=== PATIENT | female | born 1965 | race Caucasian/White ===

== ENCOUNTER 2023-12-17 12:11 | Emergency (ER) | payer BC, OTHER ==
[~2023-12-17] VITALS: Ht 170.2 cm; Wt 104.3 kg
[2023-12-17 12:46] VITALS: BP_SYST 126; PULSE 87; RESP 18; TEMP 97.4; O2SAT 95
[2023-12-17 13:28] LABS: BASOPHILS # (AUTO) 0.1 K/uL (0.0-0.2); EOSINOPHILS % (AUTO) 0.4 % (0.0-4.0); HEMATOCRIT 34.5 % (36-48); HEMOGLOBIN 11.9 g/dL (12.0-16.0); LYMPHOCYTES # (AUTO) 1.1 K/uL (1.0-5.5); LYMPHOCYTES % (AUTO) 19.5 % (20.5-51.5); MEAN CORPUSCULAR HEMOGLOBIN 33 pg (27-31); MEAN CORPUSCULAR HGB CONC 35 % (32-36); MEAN CORPUSCULAR VOLUME 96 fL (79.0-98.0); MONOCYTES # (AUTO) 0.6 K/uL (0.0-1.0); MONOCYTES % (AUTO) 9.9 % (1.7-9.3); NEUTROPHILS # (AUTO) 3.9 K/uL (1.8-7.7); NEUTROPHILS % (AUTO) 69.2 % (40.0-70.0); PLATELET COUNT (AUTO) 118 K/uL (130-430); RED BLOOD CELL COUNT(AUTO) 3.61 MIL/uL (4.2-6.2); RED CELL DISTRIBUTION WIDTH 14.9 % (9.0-15.0); WHITE BLOOD COUNT (AUTO) 5.6 K/uL (4.8-10.8)
[2023-12-17 13:46] LABS: INR 1.3 (0.8-1.2); PROTHROMBIN TIME 13.3 SECS (9.5-12.5)
[2023-12-17 13:47] LABS: ANION GAP 13 (5-15); CALCIUM 8.6 mg/dL (8.4-11.0); CARBON DIOXIDE 24 mmol/L (23-29); CHLORIDE 100 mmol/L (98-107); CREATININE 0.68 mg/dL (0.55-1.30); GFR AFRICAN AMERICAN 114 mL/min (>90); GLUCOSE 105 mg/dL (74-106); POTASSIUM 4.4 mmol/L (3.5-5.1); SODIUM SERUM 137 mmol/L (136-145); UREA NITROGEN, BLOOD 7 mg/dL (8-21)
[2023-12-17 13:51] LABS: GFR NON AFRICAN-AMERICAN 94 mL/min (>90)
[2023-12-17 15:04] LABS: FREE T4 (FREE THYROXINE) 0.9 ng/dL (0.6-1.6); THYROID STIMULATING HORMONE 5.03 uIu/mL (0.34-4.82)
[2023-12-17 16:58] VITALS: BP_SYST 126; PULSE 87; RESP 18; TEMP 97.4; O2SAT 95
== END 2023-12-17 15:30 | disposition home or self-care (01) ==
LOC: SED 12:11
DX: K92.2 Gastrointestinal hemorrhage, unspecified (principal); E03.9 Hypothyroidism, unspecified; R53.1 Weakness; I10 Essential (primary) hypertension
CPT/HCPCS: 36415; 71045; 80048; 84439; 84443; 84484; 85025; 85610; 85730; 93005; 99285

== ENCOUNTER 2024-03-02 09:29 | Inpatient (IN) | payer OTHER ==
[~2024-03-02] VITALS: Ht 167.6 cm; Wt 108.9 kg
[2024-03-02] VITALS (7 sets, daily range): BP systolic 92–155; PULSE 118–128; RESP 14–19; TEMP 97.3–98.6; O2SAT 95–98
[2024-03-02 10:37] LABS: COVID19 ANTIGEN SOFIA FIA NEGATIVE (NEGATIVE)
[2024-03-02 10:38] LABS: INFLUENZA TYPE A Negative (NEGATIVE); INFLUENZA TYPE B NEGATIVE (NEGATIVE)
[2024-03-02 11:14] LABS: BILIRUBIN,URINE 2+ (NEGATIVE); BLOOD, URINE NEGATIVE (NEGATIVE); CLARITY/URINE SL CLOUDY (CLEAR); COLOR,URINE YELLOW (YELLOW); GLUCOSE,URINE NEGATIVE (NEGATIVE); KETONES,URINE TRACE (NEGATIVE); LEUKOCYTE ESTERASE ,URINE NEGATIVE (NEGATIVE); NITRITE, URINE NEGATIVE (NEGATIVE); PROTEIN URINE 1+ (NEGATIVE); UROBILINOGEN,URINE 0.2 (0.2-1.0)
[2024-03-02] MEDS: LORazepam 2 MG/ML VIAL IVP ONE (11:26)
[2024-03-02 11:34] LABS: BACTERIA,URINE MANY /HPF (None Seen); FINE GRANULAR CASTS,URINE 0-5 /LPF (None Seen); HYALINE CASTS, URINE 0-3 /LPF (None Seen)
[2024-03-02 11:54] LABS: BASOPHILS % (AUTO) 0.2 % (0.0-2.0); EOSINOPHILS % (AUTO) 0.1 % (0.0-4.0); HEMATOCRIT 40.9 % (36-48); HEMOGLOBIN 13.4 g/dL (12.0-16.0); LYMPHOCYTES # (AUTO) 0.8 K/uL (1.0-5.5); MEAN CORPUSCULAR HEMOGLOBIN 31 pg (27-31); MEAN CORPUSCULAR HGB CONC 33 % (32-36); MEAN CORPUSCULAR VOLUME 96 fL (79.0-98.0); MONOCYTES # (AUTO) 0.9 K/uL (0.0-1.0); MONOCYTES % (AUTO) 4.5 % (1.7-9.3); NEUTROPHILS # (AUTO) 18.3 K/uL (1.8-7.7); NEUTROPHILS % (AUTO) 91.2 % (40.0-70.0); PLATELET COUNT (AUTO) 136 K/uL (130-430); RED BLOOD CELL COUNT(AUTO) 4.26 MIL/uL (4.2-6.2); RED CELL DISTRIBUTION WIDTH 14.5 % (9.0-15.0); WHITE BLOOD COUNT (AUTO) 20.1 K/uL (4.8-10.8)
[2024-03-02 12:07] LABS: ALANINE AMINOTRANSFERASE 82 U/L (12-78); ALBUMIN 1.3 g/dL (3.4-4.8); ANION GAP 8 (5-15); ASPARTATE AMINOTRANSFERASE 147 U/L (10-37); BILIRUBIN,DIRECT 3.8 mg/dL (0.0-0.3); CALCIUM 7.5 mg/dL (8.4-11.0); CARBON DIOXIDE 29 mmol/L (23-29); CREATININE 1.41 mg/dL (0.55-1.30); GFR AFRICAN AMERICAN 49 mL/min (>90); GLUCOSE 129 mg/dL (74-106); LIPASE 97 U/L (16-77); PHOSPHORUS 3.4 mg/dL (2.7-4.5); PROTHROMBIN TIME 19.6 SECS (9.5-12.5); SODIUM SERUM 120 mmol/L (136-145); THYROID STIMULATING HORMONE 3.18 uIu/mL (0.34-4.82); TOTAL BILIRUBIN 5.5 mg/dL (0.0-1.0); TOTAL PROTEIN, SERUM 4.7 g/dL (6.4-8.3); UREA NITROGEN, BLOOD 21 mg/dL (8-21)
[2024-03-02 12:08] LABS: GFR NON AFRICAN-AMERICAN 40 mL/min (>90)
[2024-03-02 12:09] LABS: CHLORIDE 83 mmol/L (98-107)
[2024-03-02] MEDS ORDERED: NOREPINEPHRINE 4 MG/4 ML VIAL IV ONE (12:44)
[2024-03-02] MEDS ORDERED: PIPERACILLIN/TAZOBACTAM 3.375 GM/VIAL (ZOSYN) IV ONE (13:03)
[2024-03-02] MEDS: NOREPINEPHRINE BITARTRATE 4 MG in NS 246 ML IV ONE (13:08)
[2024-03-02] MEDS: PIPERACILLIN/TAZO 3.375 GM in NS 50 ML IV ONE (13:12)
[2024-03-02] MEDS: VANCOMYCIN HCL 1,000 MG in NS 250 ML IV ONE (13:45)
[2024-03-02] MEDS ORDERED: NOREPINEPHRINE BITARTRATE 4 MG in NS 246 ML IV ONE (14:15)
[2024-03-02] MEDS ORDERED: PRED20TA PO (14:21)
[2024-03-02] MEDS ORDERED: FURO40TA5 PO (14:21)
[2024-03-02] MEDS ORDERED: LACT10SO7 PO (14:21)
[2024-03-02] MEDS ORDERED: ATOR10TA68 PO (14:21)
[2024-03-02] MEDS ORDERED: VANCOMYCIN HCL 1000 MG/VIAL IV ONE (14:46)
[2024-03-02] MEDS: D5NS 1,000 ML IV SCH (14:49)
[2024-03-02] MEDS: ALBUMIN HUMAN 25% 100 ML IV ONE (17:15)
[2024-03-02] MEDS: LACTULOSE 20 GM/30 ML UDC PO ONE (17:57)
[2024-03-02 18:53] LABS: ABG O2 SAT% ESTIMATE 99.1 % (94.0-100.0); ALLEN'S TEST POSITIVE (P); BLOOD GAS HCO3 19.9 mmol/L (21.0-27.0); BLOOD GAS PCO2 20.5 mmHg (35.0-45.0); BLOOD GAS PH 7.604 (7.350-7.450); BLOOD GAS PO2 131.7 mmHg (75.0-100.0)
[2024-03-02] MEDS ORDERED: LACTULOSE 20 GM/30 ML UDC PO SCH (21:00)
[2024-03-02] MEDS: NOREPINEPHRINE 4 MG/4 ML VIAL IV ONE (21:20)
[2024-03-02] MEDS ORDERED: ONDANSETRON 4 MG ODT TAB PO PRN (23:30)
[2024-03-02] MEDS: PIPERACILLIN/TAZO 3.375 GM in NS 50 ML IV SCH (23:37)
[2024-03-02] MEDS: KCL 40 mEq in 100 mL (PREMIX) 100 ML IV ONE (23:38)
[2024-03-02] MEDS: HYDROCORTISONE SOD SUCC 100 MG/2 ML VIAL IVP SCH (23:39)
[2024-03-02] MEDS: NOREPINEPHRINE BITARTRATE 4 MG in D5W 246 ML IV PRN (23:42)
[2024-03-03] VITALS (24 sets, daily range): BP systolic 93–147; PULSE 112–138; RESP 12–19; TEMP 96.5–97.1; O2SAT 93–99
[2024-03-03] MEDS: ACETAMINOPHEN 500 MG TABLET PO PRN (00:05)
[2024-03-03] MEDS: ALBUMIN HUMAN 25% 200 ML IV ONE ×3 (01:07→06:06)
[2024-03-03] MEDS: PIPERACILLIN/TAZOBACTAM 3.375 GM/VIAL (ZOSYN) IV ONE (01:33)
[2024-03-03] MEDS: NOREPINEPHRINE 4 MG/4 ML VIAL IV ONE (06:06)
[2024-03-03 07:31] LABS: BASOPHILS % (AUTO) 0.2 % (0.0-2.0); CALCIUM 7.2 mg/dL (8.4-11.0); CREATININE 1.59 mg/dL (0.55-1.30); HEMATOCRIT 39.6 % (36-48); HEMOGLOBIN 12.8 g/dL (12.0-16.0); LYMPHOCYTES # (AUTO) 0.6 K/uL (1.0-5.5); LYMPHOCYTES % (AUTO) 3.3 % (20.5-51.5); MEAN CORPUSCULAR HEMOGLOBIN 31 pg (27-31); MEAN CORPUSCULAR HGB CONC 32 % (32-36); MEAN CORPUSCULAR VOLUME 96 fL (79.0-98.0); MONOCYTES # (AUTO) 0.9 K/uL (0.0-1.0); MONOCYTES % (AUTO) 4.6 % (1.7-9.3); NEUTROPHILS % (AUTO) 91.9 % (40.0-70.0); PLATELET COUNT (AUTO) 132 K/uL (130-430); RED BLOOD CELL COUNT(AUTO) 4.12 MIL/uL (4.2-6.2); RED CELL DISTRIBUTION WIDTH 15.2 % (9.0-15.0); WHITE BLOOD COUNT (AUTO) 18.5 K/uL (4.8-10.8)
[2024-03-03 07:32] LABS: ALBUMIN 2.6 g/dL (3.4-4.8); TOTAL BILIRUBIN 5.8 mg/dL (0.0-1.0); TOTAL PROTEIN, SERUM 4.9 g/dL (6.4-8.3)
[2024-03-03 07:37] LABS: POTASSIUM 2.9 mmol/L (3.5-5.1)
[2024-03-03] MEDS ORDERED: RIFAXIMIN 200 MG TABLET PO SCH ×2 (09:00)
[2024-03-03] MEDS: PANTOPRAZOLE SODIUM 40 MG/VIAL (PROTONIX) IVP SCH (09:38)
[2024-03-03] MEDS: SODIUM CHLORIDE 3% *HI-ALERT* 500 ML IV SCH (09:40)
[2024-03-03] MEDS: MAGNESIUM SULFATE 50 ML IV ONE (10:33)
[2024-03-03] MEDS: NOREPINEPHRINE BITARTRATE 8 MG in D5W 242 ML IV PRN (10:36)
[2024-03-03] MEDS: RIFAXIMIN 550 MG TABLET PO ONE (10:57)
[2024-03-03] MEDS: MIDODRINE HCL 5 MG TABLET (PROAMATINE) PO SCH (10:57)
[2024-03-03] MEDS: KCL 40 mEq in 100 mL (PREMIX) 100 ML IV ONE (12:09)
[2024-03-03] MEDS: FUROSEMIDE 20 MG/2 ML VIAL IVP ONE (13:59)
[2024-03-03] MEDS: VANCOMYCIN HCL 1.25 GM/NS 250 ML IV SCH (14:45)
[2024-03-03 16:13] LABS: CALCIUM 7.5 mg/dL (8.4-11.0); CREATININE 1.67 mg/dL (0.55-1.30); POTASSIUM 3.6 mmol/L (3.5-5.1)
[2024-03-03] MEDS: RIFAXIMIN 550 MG TABLET PO SCH (20:15)
[2024-03-04] VITALS (19 sets, daily range): BP systolic 64–173; PULSE 75–142; RESP 14–25; TEMP 94.3–97.8; O2SAT 69–99
[2024-03-04 05:13] LABS: BASOPHILS # (AUTO) 0.1 K/uL (0.0-0.2); BASOPHILS % (AUTO) 0.2 % (0.0-2.0); HEMATOCRIT 52.2 % (36-48); HEMOGLOBIN 16.9 g/dL (12.0-16.0); LYMPHOCYTES # (AUTO) 0.9 K/uL (1.0-5.5); LYMPHOCYTES % (AUTO) 3.3 % (20.5-51.5); MEAN CORPUSCULAR HEMOGLOBIN 31 pg (27-31); MEAN CORPUSCULAR HGB CONC 32 % (32-36); MEAN CORPUSCULAR VOLUME 96 fL (79.0-98.0); MONOCYTES # (AUTO) 1.2 K/uL (0.0-1.0); MONOCYTES % (AUTO) 4.6 % (1.7-9.3); NEUTROPHILS % (AUTO) 91.9 % (40.0-70.0); PLATELET COUNT (AUTO) 145 K/uL (130-430); RED BLOOD CELL COUNT(AUTO) 5.44 MIL/uL (4.2-6.2); RED CELL DISTRIBUTION WIDTH 14.8 % (9.0-15.0); WHITE BLOOD COUNT (AUTO) 26.2 K/uL (4.8-10.8)
[2024-03-04 05:34] LABS: ALBUMIN 2.1 g/dL (3.4-4.8); CALCIUM 7.8 mg/dL (8.4-11.0); CREATININE 2.12 mg/dL (0.55-1.30); TOTAL PROTEIN, SERUM 5.4 g/dL (6.4-8.3)
[2024-03-04 05:53] LABS: INR 2.5 (0.8-1.2); PROTHROMBIN TIME 24.8 SECS (9.5-12.5)
[2024-03-04 06:24] LABS: POTASSIUM 2.9 mmol/L (3.5-5.1)
[2024-03-04] MEDS: IPRATROPIUM/ALBUTEROL SULFATE 3 ML AMPUL.NEB (DUONEB) INH PRN (07:30)
[2024-03-04] MEDS: NOREPINEPHRINE 4 MG/4 ML VIAL IV ONE ×3 (07:51→14:33)
[2024-03-04] MEDS: KCL 40 mEq in 100 mL (PREMIX) 100 ML IV ONE (07:55)
[2024-03-04] MEDS: SODIUM CHLORIDE 3% *HI-ALERT* 250 ML IV ONE (08:29)
[2024-03-04] MEDS: MAGNESIUM SULFATE 4 GM in D5W 250 ML IV ONE (08:36)
[2024-03-04] MEDS: NACL 0.9% 2,000 ML IV ONE (10:54)
[2024-03-04] MEDS ORDERED: SODIUM BICARBONATE 8.4% JECT 50 MEQ/50 ML SYRINGE ONE (11:00)
[2024-03-04] MEDS ORDERED: EPINEPHrine JECT 0.1 MG/ML SYR ONE (11:00)
[2024-03-04] MEDS ORDERED: CALCIUM CHLORIDE 1 GM/10 ML DISP.SYRIN (14 mEq Ca++/SYR) ONE (11:00)
[2024-03-04] MEDS ORDERED: VASOPRESSIN 40 UNITS in NS 38 ML IV PRN (11:45)
[2024-03-04] MEDS: ALBUMIN HUMAN 25% 100 ML IV SCH (12:03)
[2024-03-04] MEDS: PHENYLEPHRINE HCL 100 MG in NS 240 ML IV PRN (12:31)
[2024-03-04] MEDS: FENTANYL CITRATE-0.9 % NACL/PF 100 ML IV PRN (12:33)
[2024-03-04] MEDS: NOREPINEPHRINE BITARTRATE 4 MG in NS 246 ML IV PRN (13:18)
[2024-03-04] MEDS ORDERED: SODIUM CL 3% FOR INHALATION 15 ML VIAL.NEB INH ONE (13:45)
[2024-03-04] MEDS: MIDAZOLAM IN NACL,ISO-OSMOT/PF 100 ML IV PRN (13:57)
[2024-03-04] MEDS ORDERED: NOREPINEPHRINE BITARTRATE 32 MG in NS 218 ML IV PRN (14:15)
[2024-03-04] MEDS ORDERED: NACL 0.9% 1,000 ML, NACL 0.9% 1,000 ML IV ONE (14:45)
[2024-03-04] MEDS ORDERED: FENTANYL CITRATE-0.9 % NACL/PF 100 ML IV PRN (16:00)
[2024-03-05 08:06] LABS: AFP, TUMOR MARKER 4.8 ng/mL (0.0-9.2)
== END 2024-03-04 16:53 | DRG 871 ==
LOC: SED 09:29 → SIC 13:54
PROVIDERS: ADMIT Specialist; ATTEND Specialist
PROC: 02HV33Z Insertion of Infusion Device into Superior Vena Cava, Percutaneous Approach (ICD-10-PCS; 2024-03-02)
PROC: 5A12012 Performance of Cardiac Output, Single, Manual (ICD-10-PCS; principal; 2024-03-04)
PROC: 5A1935Z Respiratory Ventilation, Less than 24 Consecutive Hours (ICD-10-PCS; 2024-03-04)
PROC: 0BH17EZ Insertion of Endotracheal Airway into Trachea, Via Natural or Artificial Opening (ICD-10-PCS; 2024-03-04)
DX: A41.9 Sepsis, unspecified organism (principal); J18.9 Pneumonia, unspecified organism; J69.0 Pneumonitis due to inhalation of food and vomit; J96.01 Acute respiratory failure with hypoxia; N17.0 Acute kidney failure with tubular necrosis; R65.21 Severe sepsis with septic shock; E87.1 Hypo-osmolality and hyponatremia; D68.9 Coagulation defect, unspecified; J98.11 Atelectasis; K80.00 Calculus of gallbladder with acute cholecystitis without obstruction; K70.31 Alcoholic cirrhosis of liver with ascites; Z20.822 Contact with and (suspected) exposure to COVID-19; E66.01 Morbid (severe) obesity due to excess calories; I11.0 Hypertensive heart disease with heart failure; K57.30 Diverticulosis of large intestine without perforation or abscess without bleeding; K42.9 Umbilical hernia without obstruction or gangrene; E87.6 Hypokalemia; E78.5 Hyperlipidemia, unspecified; F10.11 Alcohol abuse, in remission; I50.9 Heart failure, unspecified; Z79.52 Long term (current) use of systemic steroids; Z90.49 Acquired absence of other specified parts of digestive tract; Z79.899 Other long term (current) drug therapy; I46.9 Cardiac arrest, cause unspecified; K70.11 Alcoholic hepatitis with ascites
CPT/HCPCS: 36415; 71045; 78226; 80048; 80053; 80076; 81000; 81001; 81015; 82105; 82140; 82803; 82948; 83605; 83690; 83735; 83880; 84100; 84443; 84484; 85025; 85610; 85730; 86886; 86900; 86901; 87040; 87081; 93005; 94002; 94640; 96365; 99285; A9537; J0171; J1720; J1940; J2060; J2470; J2543; J3010; J3370; J3475; J3480; J3490; J7050; J7060